=== PATIENT | female | born 1960 | race Caucasian/White ===

== ENCOUNTER 2022-09-04 18:33 | Inpatient (IN) | payer OTHER ==
[2022-09-04 18:46] VITALS: BMI 32.5
[2022-09-04] MEDS ORDERED: ALBUTEROL SO4 2.5/IPRATROPIUM 0.5 INH SOL 3 ML VIAL.NEB. NEB ONE ×2 (18:52→19:17)
[2022-09-04] MEDS ORDERED: ACETAMINOPHEN 500 MG TABLET (FP) PO ONE (18:54)
[2022-09-04] MEDS ORDERED: DEXAMETHASONE 4 MG TABLET (FP) PO ONE (19:00)
[2022-09-04] MEDS ORDERED: ACETAMINOPHEN 500 MG TABLET (FP) ONE (19:17)
[2022-09-04] MEDS ORDERED: DEXAMETHASONE 4 MG TABLET (FP) ONE (19:17)
[2022-09-04] MEDS ORDERED: ALBUTEROL SO4 0.083% IH SOL 2.5 MG/3 ML VIAL.NEB. NEB STA (20:22)
[2022-09-04] MEDS ORDERED: ALBUTEROL SO4 0.083% IH SOL 2.5 MG/3 ML VIAL.NEB. NEB ONE (20:23)
[2022-09-04] MEDS ORDERED: DOCUSATE SODIUM 100 MG CAPSULE (FP) PO PRN (23:06)
[2022-09-04 23:08] LABS: HEMATOCRIT 43.3 % (32.4-45.2); HEMOGLOBIN 14.7 G/dL (10.7-15.3); MCH 31.2 pg (25.7-33.7); MEAN CELL VOLUME 91.7 fl (80-96); PLATELET COUNT 225.2 10^3/uL (134-434); RBC 4.72 10^6/uL (3.60-5.2); RDW 14.3 % (11.6-15.6); WHITE BLOOD COUNT 9.4 10^3/uL (4.0-10.8)
[2022-09-04 23:18] LABS: PLATELET ESTIMATE ADEQUATE
[2022-09-04 23:29] LABS: ALBUMIN 4.1 g/dl (3.4-5.0); BILIRUBIN,TOTAL 0.3 mg/dl (0.2-1); BLOOD UREA NITROGEN 13.2 mg/dl (7-18); CALCIUM 9.2 mg/dl (8.5-10.1); CREATININE 0.8 mg/dl (0.6-1.3); POTASSIUM 3.3 mmol/L (3.5-5.1); TOT PROT 6.7 g/dl (6.4-8.2)
[2022-09-05] MEDS ORDERED: ALBUTEROL SO4 0.083% IH SOL 2.5 MG/3 ML VIAL.NEB. NEB PRN (03:21)
[2022-09-05] MEDS ORDERED: ACETAMINOPHEN 1000 MG/100 ML BAG IVPB ONE (03:34)
[2022-09-05] MEDS ORDERED: guaiFENesin/D-M SUGAR-FREE/ACLHOL-FREE (200 MG/10 MG) 5 ML PO PRN (03:52)
[2022-09-05] MEDS ORDERED: LORATADINE 10 MG TABLET PO PRN (03:52)
[2022-09-05] MEDS: ALBUTEROL SO4 0.083% IH SOL 2.5 MG/3 ML VIAL.NEB. NEB PRN ×2 (04:00→09:44)
[2022-09-05] MEDS: MELATONIN 5 MG TABLETS PO PRN (04:01)
[2022-09-05] MEDS: KCL 10 MEQ IVPB 10 MEQ/100 ML INFUS.BAG IVPB SCH ×2 (04:01→05:27)
[2022-09-05] MEDS: INSULIN SLIDING SCALE (NOVOLOG) 1 VIAL SQ SCH ×4 (06:48→22:47)
[2022-09-05 08:04] LABS: INR 1.06 (0.83-1.09); PROTHROMBIN TIME (PATIENT) 12.3 SEC (9.7-13.0)
[2022-09-05 08:07] LABS: ACTIVATED PTT 30.4 SECONDS (25.2-36.5)
[2022-09-05 08:16] LABS: BLOOD UREA NITROGEN 13.5 mg/dl (7-18); CALCIUM 8.8 mg/dl (8.5-10.1); CREATININE 0.8 mg/dl (0.6-1.3); MAGNESIUM 1.6 mg/dL (1.8-2.4); PHOSPHOROUS 2.75 (2.5-4.9); POTASSIUM 3.9 mmol/L (3.5-5.1)
[2022-09-05] MEDS ORDERED: ACETAMINOPHEN 325 MG TABLET (FP) PO PRN (09:40)
[2022-09-05] MEDS: OSELTAMIVIR PHOSPHATE 75 MG CAPSULE PO SCH ×2 (09:43→21:19)
[2022-09-05] MEDS: amLODIPine BESYLATE 10 MG TABLET (FP) PO SCH (09:43)
[2022-09-05] MEDS: LOSARTAN POTASSIUM 50 MG TABLET PO SCH (09:43)
[2022-09-05] MEDS: CHOLECALCIFEROL (VIT D3) 1,000 UNIT (25 MCG) TABLET PO SCH (09:43)
[2022-09-05] MEDS: ENOXAPARIN NA (PORCINE) 40 MG/0.4 ML DISP.SYRIN SQ SCH (09:44)
[2022-09-05] MEDS ORDERED: MAGNESIUM SULF 50% (8.12 MEQ/2 ML-1 GM VIAL) IVPB ONE (09:46)
[2022-09-05 09:47] LABS: BASO % 0.2 % (0-2.0); HEMATOCRIT 40.5 % (32.4-45.2); HEMOGLOBIN 13.7 GM/dL (10.7-15.3); LYMPH % 6.8 % (8-40); MCHC 33.8 g/dl (32.0-36.0); MEAN CELL VOLUME 88.8 fl (80-96); MONO % 4.2 % (3.8-10.2); NEUT % 88.8 % (42.8-82.8); PLATELET COUNT 249 10^3/uL (134-434); RBC 4.56 M/mm3 (3.60-5.2); RDW 13.6 % (11.6-15.6); WHITE BLOOD COUNT 5.7 K/mm3 (4.0-10.0)
[2022-09-05] MEDS ORDERED: ALBUTEROL SO4 2.5/IPRATROPIUM 0.5 INH SOL 3 ML VIAL.NEB. NEB PRN (09:50)
[2022-09-05] MEDS ORDERED: PATIENT'S OWN MEDICATION (NON-FORMULARY) (Fluticasone/Vilanterol [Breo Ellipta 200-25 Mcg IH SCH (10:00)
[2022-09-05] MEDS ORDERED: MAGNESIUM SULFATE IN WATER 2 GM/50 ML IVPB IVPB ONE (10:00)
[2022-09-05] MEDS: ALBUTEROL SO4 2.5/IPRATROPIUM 0.5 INH SOL 3 ML VIAL.NEB. NEB SCH ×4 (10:30→22:47)
[2022-09-05] MEDS ORDERED: methylPREDNISolone NA SUCC 40 MG/1 ML VIAL IVPUSH SCH (10:30)
[2022-09-05] MEDS: BUDESONIDE/FORMETEROL FUMARATE 160/4.5 mcg INHALER IH SCH ×2 (10:49→21:20)
[2022-09-05] MEDS: methylPREDNISolone NA SUCC 40 MG/1 ML VIAL IVPUSH SCH (18:22)
[2022-09-06] MEDS: MELATONIN 5 MG TABLETS PO PRN (02:23)
[2022-09-06] MEDS: ALBUTEROL SO4 2.5/IPRATROPIUM 0.5 INH SOL 3 ML VIAL.NEB. NEB SCH ×3 (02:23→09:33)
[2022-09-06] MEDS: methylPREDNISolone NA SUCC 40 MG/1 ML VIAL IVPUSH SCH ×2 (02:30→09:34)
[2022-09-06] MEDS: INSULIN SLIDING SCALE (NOVOLOG) 1 VIAL SQ SCH ×2 (06:50→11:29)
[2022-09-06 08:48] LABS: BLOOD UREA NITROGEN 14.1 mg/dl (7-18); CALCIUM 9.1 mg/dl (8.5-10.1); CREATININE 0.7 mg/dl (0.6-1.3); MAGNESIUM 1.9 mg/dL (1.8-2.4); PHOSPHOROUS 3.31 (2.5-4.9); POTASSIUM 3.8 mmol/L (3.5-5.1)
[2022-09-06 09:32] VITALS: BP 119/64; PULSE 97; RESP 18; TEMP 98.5
[2022-09-06] MEDS: OSELTAMIVIR PHOSPHATE 75 MG CAPSULE PO SCH (09:33)
[2022-09-06] MEDS: amLODIPine BESYLATE 10 MG TABLET (FP) PO SCH (09:33)
[2022-09-06] MEDS: CHOLECALCIFEROL (VIT D3) 1,000 UNIT (25 MCG) TABLET PO SCH (09:34)
[2022-09-06] MEDS: LOSARTAN POTASSIUM 50 MG TABLET PO SCH (09:34)
[2022-09-06] MEDS: BUDESONIDE/FORMETEROL FUMARATE 160/4.5 mcg INHALER IH SCH (09:35)
[2022-09-06] MEDS: ENOXAPARIN NA (PORCINE) 40 MG/0.4 ML DISP.SYRIN SQ SCH (10:30)
== END 2022-09-06 13:30 | disposition home or self-care (01) | DRG 141 ==
LOC: FER 18:33 → FM/S 23:46
PROVIDERS: ADMIT Internal Medicine
DX: J45.901 Unspecified asthma with (acute) exacerbation (principal); J11.1 Influenza due to unidentified influenza virus with other respiratory manifestations; I10 Essential (primary) hypertension; E11.9 Type 2 diabetes mellitus without complications; E78.5 Hyperlipidemia, unspecified
CPT/HCPCS: 0241U-QW; 36415; 71046-TC-FY; 80048; 80053; 82962; 83036; 83735; 84100; 85025; 85610; 85730; 93005; 94640; 99285-25